=== PATIENT | male | born 1980 | race Caucasian/White ===

== ENCOUNTER 2021-01-03 18:49 | Outpatient (CLI) | payer MEDICAID | END 2021-01-03 18:50 | disposition EMS.NT | LOC: EMS 18:49 | DX: Z03.89 Encounter for observation for other suspected diseases and conditions ruled out (principal) ==

== ENCOUNTER 2021-01-22 16:36 | Outpatient (CLI) | payer MEDICAID | END 2021-01-22 16:37 | disposition EMS.NT | LOC: EMS 16:36 | DX: L24.5 Irritant contact dermatitis due to other chemical products (principal) ==

== ENCOUNTER 2021-02-16 13:04 | Outpatient (CLI) | payer MEDICAID | END 2021-02-16 13:05 | disposition critical access hospital (66) | LOC: EMS 13:04 | DX: R25.3 Fasciculation (principal) | CPT/HCPCS: A0425; A0429; A0999 ==

== ENCOUNTER 2021-02-16 13:42 | Emergency (ER) | payer MEDICAID ==
[2021-02-16 14:05] VITALS: BP 153/89
--- NOTE | 2021-02-16 14:10 | ED Physician Documentation ---
History of Present Illness - Stated complaint Stated Complaint: OD - Chief complaint Chief Complaint: General - History obtained from History obtained from: Patient, EMS, Police - History of Present Illness Timing: Today - Additonal information Additional information: 40-year-old male was brought to the emergency department for fit for confinement. The report is that he told the police that he had taken heroin and then he became unarousable and was given Narcan. He was given 2 doses he had full recovery and is brought to the emergency department now for fit for confinement. The patient has escaped from the corrections facility and has local charges as well. Review of Systems Constitutional: denies: Fever Nose: denies: Congestion Throat: denies: Sore throat Cardiac: denies: Chest pain / pressure Respiratory: reports: Cough. denies: Dyspnea GI: reports: Nausea. denies: Vomiting : denies: Dysuria PD PAST MEDICAL HISTORY - Past Surgical History Past Surgical History: Yes General: Appendectomy - Present Medications Home Medications: Ambulatory Orders Medication Instructions Recorded Confirmed No Known Home Medications 04/27/13 02/16/21 - Allergies Allergies/Adverse Reactions: Allergies Allergy/AdvReac Type Severity Reaction Status Date / Time No Known Drug Allergies Allergy Verified 04/27/13 01:28 - Social History Does the pt smoke?: No Smoking Status: Never smoker Does the pt drink ETOH?: No Does the pt have substance abuse?: Yes - Immunizations Immunizations are current?: Yes - POLST Patient has POLST: No PD ED PE NORMAL - Vitals Vital signs reviewed: Yes (tachypneic and hypertensive ) - General General: Alert and oriented X 3, Well developed/nourished, Other (appears uncomfortable writhing in the bed with active legs. ) - HEENT HEENT: Atraumatic, PERRL, EOMI - Neck Neck: Supple, no meningeal sign, No bony TTP - Cardiac Cardiac: RRR, No murmur - Respiratory Respiratory: No respiratory distress, Clear bilaterally - Abdomen Abdomen: Soft, Non tender, Non distended - Back Back: No CVA TTP, No spinal TTP - Derm Derm: Normal color, Warm and dry, No rash - Extremities Extremities: No deformity, No edema - Neuro Neuro: Alert and oriented X 3, pressure tester 2-12 intact, No motor deficit, No sensory deficit, Normal speech Eye Opening: Spontaneous Motor: Obeys Commands Verbal: Oriented GCS Score: 15 - Psych Psych: Normal mood, Normal affect Results - Vitals Vitals: Vital Signs - 24 hr 02/16/21 13:45 Temperature 37.1 C Heart Rate 94 Respiratory 34 H Rate Blood Pressure 153/89 H O2 Saturation 100 Oxygen O2 Source Room air PD MEDICAL DECISION MAKING - ED course Complexity details: reviewed old records, re-evaluated patient, considered differential, d/w patient ED course: 40-year-old male brought by police to the emergency department for fit for confinement. He apparently allegedly used heroin and was less responsive. The patient was given 2 doses of Narcan, he did come completely conscious and appeared to be uncomfortable and in pain consistent with withdrawal symptoms of Narcan. The patient had no other specific medical condition and he was released as fit for confinement. A message was left for the correction medical. It would be reasonable to treat symptoms of withdrawal. Departure - Departure Disposition: 01 Home, Self Care Clinical Impression: Narcotic overdose Qualifiers: Encounter type: initial encounter Injury intent: undetermined intent Qualified Code(s): T40.604A - Poisoning by unspecified narcotics, undetermined, initial encounter Condition: Stable Instructions: ED Narcotic Abuse Follow-Up: [facility] [Provider Group] Discharge Date/Time: 02/16/21 14:24
== END 2021-02-16 14:24 ==
LOC: EDUNIT# → EDBD → ED 13:42
DX: Z02.89 Encounter for other administrative examinations (principal); T50.7X5A Adverse effect of analeptics and opioid receptor antagonists, initial encounter; R52 Pain, unspecified
CPT/HCPCS: 99281; 99283

== ENCOUNTER 2021-04-30 09:03 | Outpatient (CLI) | payer MEDICAID ==
[2021-04-30 09:28] LABS: ALBUMIN 4.5 g/dL (3.2-5.5); ALBUMIN/GLOBULIN RATIO 1.7 (1.0-2.2); BILIRUBIN,TOTAL 0.9 mg/dL (0.2-1.0); CALCIUM 9.5 mg/dL (8.5-10.3); CREATININE 0.8 mg/dL (0.6-1.2); POTASSIUM 4.7 mmol/L (3.5-5.0); TOTAL PROTEIN 7.2 g/dL (6.7-8.2)
[2021-04-30 09:37] LABS: BASOPHILS # (AUTO) 0.1 10^3/uL (0.0-0.1); BASOPHILS % (AUTO) 1.6 %; EOSINOPHILS # (AUTO) 0.2 10^3/uL (0.0-0.7); EOSINOPHILS % (AUTO) 3.3 %; HCT - HEMATOCRIT 44.2 % (42.0-52.0); HGB - HEMOGLOBIN 14.7 g/dL (14.0-18.0); LYMPHOCYTES # (AUTO) 2.5 10^3/uL (1.5-3.5); LYMPHOCYTES % (AUTO) 40.8 %; MEAN CORPUSCULAR HEMOGLOBIN 31.5 pg (27.0-31.0); MEAN CORPUSCULAR HGB CONC 33.3 g/dL (32.0-36.0); MEAN CORPUSCULAR VOLUME 94.6 fL (80.0-94.0); MEAN PLATELET VOLUME 10.8 fL (7.4-11.4); MONOCYTES # (AUTO) 0.5 10^3/uL (0.0-1.0); MONOCYTES % (AUTO) 7.6 %; NEUTROPHILS # (AUTO) 2.8 10^3/uL (1.5-6.6); NEUTROPHILS % (AUTO) 46.5 %; PLT - PLATELET COUNT 213 10^3/uL (130-450); RED BLOOD COUNT 4.67 10^6/uL (4.70-6.10); RED CELL DISTRIBUTION WIDTH 13.7 % (12.0-15.0); WHITE BLOOD COUNT 6.1 x10^3/uL (4.8-10.8)
== END 2021-04-30 09:04 | disposition home or self-care (01) ==
LOC: LAB.R 09:03
PROVIDERS: ATTEND Registered Nurse
DX: R79.89 Other specified abnormal findings of blood chemistry (principal); R68.89 Other general symptoms and signs
CPT/HCPCS: 80053; 85025

== ENCOUNTER 2023-01-11 15:00 | Outpatient (CLI) | payer MEDICAID, OTHER ==
[2023-01-11 23:16] LABS: CHLAMYDIA TRACHOMATIS DNA NEGATIVE (NEGATIVE); NEISSERIA GONORRHOEAE DNA NEGATIVE (NEGATIVE); TRICHOMONAS VAGINALIS DNA NEGATIVE (NEGATIVE)
[2023-01-13 02:08] LABS: HBsAG SCREEN Negative (Negative); HCV AB Non Reactive (Non Reactive); HIV SCREEN 4TH GENERATION Non Reactive (Non Reactive)
[2023-01-13 08:11] LABS: HSV 2 IGG TYPE SPEC 7.13 index (0.00-0.90); RPR Non Reactive (Non Reactive)
== END 2023-01-11 15:15 | disposition home or self-care (01) ==
LOC: LAB.N 15:00
PROVIDERS: ATTEND Registered Nurse
DX: R21 Rash and other nonspecific skin eruption (principal); Z11.3 Encounter for screening for infections with a predominantly sexual mode of transmission
CPT/HCPCS: 36415; 86592; 86695; 86696; 86803; 87070; 87077; 87181; 87205; 87255; 87340; 87389; 87491; 87591; 87661

== ENCOUNTER 2023-01-16 14:29 | Outpatient (CLI) | payer MEDICAID | END 2023-01-16 23:59 | disposition critical access hospital (66) | LOC: EMS 14:29 | DX: R11.2 Nausea with vomiting, unspecified (principal); R53.81 Other malaise; R42 Dizziness and giddiness | CPT/HCPCS: A0425; A0429; A0999 ==

== ENCOUNTER 2023-01-18 19:08 | Outpatient (CLI) | payer MEDICAID | END 2023-01-18 19:09 | disposition short-term general hospital (02) | LOC: EMS 19:08 | DX: R07.89 Other chest pain (principal); R51.9 Headache, unspecified; R11.2 Nausea with vomiting, unspecified; R44.3 Hallucinations, unspecified; T50.996A Underdosing of other drugs, medicaments and biological substances, initial encounter; Z91.128 Patient's intentional underdosing of medication regimen for other reason | CPT/HCPCS: A0425; A0427; A0999 ==

== ENCOUNTER 2023-02-04 08:00 | Outpatient (CLI) | payer MEDICAID ==
--- NOTE | 2023-02-05 10:52 | XRAY Report ---
PROCEDURE: Shoulder 3 View LT INDICATIONS: LEFT SHOULDER PAIN TECHNIQUE: 4 views of the shoulder were acquired. COMPARISON: None. FINDINGS: Bones: No fractures or dislocations. No suspicious bony lesions. Mild osteoarthritic changes at th e acromioclavicular joint. Visualized ribs appear intact. Soft tissues: No suspicious soft tissue calcifications. IMPRESSION: 1. No acute bony abnormality. 2. Mild osteoarthritis. Reviewed by: Star Cam MD on 02/05/2023 10:50 AM PDT Approved by: Star Cam MD on 02/05/2023 10:50 AM PDT Station ID: [id number]
== END 2023-02-04 23:59 | disposition home or self-care (01) ==
LOC: DI.WOS 08:00
PROVIDERS: ATTEND Physician Assistant Surgical
DX: M19.012 Primary osteoarthritis, left shoulder (principal)

== ENCOUNTER 2024-01-16 09:34 | Outpatient (CLI) | payer MEDICAID ==
--- NOTE | 2024-01-16 11:24 | XRAY Report ---
PROCEDURE: Lumbar Spine 4V INDICATIONS: LOW BACK PAIN TECHNIQUE: 4 views of the lumbar spine were acquired. COMPARISON: None. FINDINGS: Surgical change: None. Bones: 5 [id number] vertebrae are present. There is straightening of normal lumbar lordosis.. 6 mm retrolisthesis of L2 on L3 and 5 mm retrolisthesis of L3 on L4 is seen. Degenerative endplate ellis nges and loss of disc height throughout lumbar spine is noted. No vertebral body compression fracture s. No suspicious bony lesions. Oblique views shows bilateral bony foraminal stenosis at L4-5 and L5-S1 levels worse on the left side . Soft tissues: Overlying bowel gas pattern is normal. No suspicious soft tissue calcifications. IMPRESSION: 1. No acute lumbar spine vertebral body compression fracture. Grade 1 retrolisthesis at L2-3 and L3-4 levels. 2. Degenerative disc disease throughout lumbar spine as above. Reviewed by: Carlos Knight MD on 01/16/2024 11:23 AM PDT Approved by: Carlos Knight MD on 01/16/2024 11:23 AM PDT Station ID: [id number]
--- NOTE | 2024-01-16 11:26 | XRAY Report ---
PROCEDURE: Hip w/Pelvis 1V RT INDICATIONS: LOW BACK PAIN TECHNIQUE: AP pelvis with lateral view(s) of the hip(s). COMPARISON: None. FINDINGS: Bones: No fractures or dislocations. No suspicious bony lesions. Soft tissues: No suspicious soft tissue calcifications or masses. IMPRESSION: No acute bony abnormality. No evidence of avascular necrosis. Reviewed by: Carlos Pedroza MD on 01/16/2024 11:24 AM PDT Approved by: Carlos Pedroza MD on 01/16/2024 11:24 AM PDT Station ID: [id number]
== END 2024-01-16 09:35 | disposition home or self-care (01) ==
LOC: DI 09:34
PROVIDERS: ATTEND Nurse Practitioner Family
DX: M51.36 Other intervertebral disc degeneration, lumbar region (principal); M43.16 Spondylolisthesis, lumbar region; M25.551 Pain in right hip